=== PATIENT | male | born 1975 | race Hispanic/Latino ===

== ENCOUNTER 2016-05-31 16:14 | Emergency (ER) | payer OTHER ==
[~2016-05-31] VITALS: Ht 175.3 cm; Wt 108.9 kg
--- NOTE | 2016-05-31 16:48 | ED GENERAL ADULT ---
History of Present Illness General Chief Complaint: Chest Pain Stated Complaint: CHEST PAIN, TINGLING TO L ARM Source: patient Exam Limitations: no limitations Vital Signs & Intake/Output Vital Signs & Intake/Output Vital Signs Date Time Temp Pulse Resp B/P Pulse O2 O2 Flow FiO2 Ox Delivery Rate 05/31 1914 97.8 94 20 128/72 98 Room Air 05/31 1738 97.5 75 20 135/76 98 Room Air 05/31 1633 80 15 143/88 97 Room Air Room Air Allergies Coded Allergies: NO KNOWN ALLERGIES (05/31/16) Reconcile Medications Ibuprofen 800 MG TABLET 1 TAB PO PRN PAIN (Reported) Triage Note: PT TO ED FOR INTERMITTENT SHARP CHEST PAIN THAT OCCURS EVERY DAY FOR THE LAST MONTH, BUT TODAY, PT REPORTS DIFFICULTY SEEING OUT OF LEFT EYE. PT ALSO REPORTS LEFT ARM PAIN WITH L HAND NUMBNESS/TINGLING THAT IS MOSTLY CONSTANT. PT'S CP ONLY LASTS ABOUT 5-10 SECS. PT NSR 80'S. NO DIAPHORESIS NOTED. NO ACUTE DISTRESS NOTED. Triage Nurses Notes Reviewed? yes HPI: Patient is a 41-year-old male presents complaining of episode of chest pain, change in vision in his left eye and paresthesias of his left hand. Patient reports that he was driving approximately 2 PM when he had 5-10 seconds of sharp left-sided chest pain. Since then he has been having paresthesias of his left hand and a feeling of cloudy vision and a poking sensation to his left eye. No exacerbating or alleviating factors. Patient reports that he has gotten the episodes of chest pain one to 2 times daily for approximately one month. These episodes also last approximately 5-10 seconds and resolve on their own. Pain is currently 0 out of 10. Patient denies headache, numbness (EDGARDO GRAY) Past History Travel History Traveled to [place] past 21 day No Medical History Any Pertinent Medical History? 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 No (EDGARDO GRAY) Review of Systems Review of Systems Constitutional: Denies: chills, fever. EENTM: Reports: visual changes (LEFT EYE). Respiratory: Reports: short of breath (with the chest pain episode). Denies: cough. Cardiovascular: Reports: see HPI. GI: Reports: no symptoms. Musculoskeletal: Denies: back pain, neck pain. Skin: Reports: no symptoms. Neurological/Psychological: Reports: see HPI. Hematologic/Endocrine: Reports: no symptoms. Immunologic/Allergic: Reports: no symptoms. (EDGARDO GRAY) Physical Exam Physical Exam General Appearance: well developed/nourished, alert, awake Head: atraumatic, normal appearance Eyes: Bilateral: normal appearance, PERRL, EOMI, other (grossly normal fundoscope exam ). Ears, Nose, Throat: normal pharynx, normal ENT inspection, hearing grossly normal Neck: normal inspection, supple, full range of motion, no midline tenderness Respiratory: normal breath sounds, chest non-tender, no respiratory distress, lungs clear Cardiovascular: regular rate/rhythm Peripheral Pulses: 2+ radial (R), 2+ radial (L) Gastrointestinal: soft, non-tender, no palpable masses Back: normal inspection, normal range of motion Extremities: normal inspection, normal capillary refill, normal range of motion, no edema Neurologic/Psych: no motor/sensory deficits, awake, alert, oriented x 3, normal gait, normal mood/affect Skin: intact, normal color, warm/dry Lymphatic: no anterior cervical jocelin Core Measures ACS in differential dx? Yes ASA ordered for poss ACS? No-ACS ruled out CVA/TIA Diagnosis: No Severe Sepsis Present: No Septic Shock Present: No (EDGARDO GRAY) Progress Differential Diagnoses I considered the following diagnoses in my evaluation of the patient: Plan of Care: Orders Procedure Date/time Status Telemetry/Cover Stripper 05/31 1644 Active TROPONIN LEVEL 05/31 1644 Complete COMPREHENSIVE METABOLIC PANEL 05/31 1644 Complete CBC WITHOUT DIFFERENTIAL 05/31 1644 Complete EKG 05/31 1616 Active Laboratory Tests 05/31/16 1738: Anion Gap 14, Estimated GFR > 60, BUN/Creatinine Ratio 17.1, Glucose 91, Calcium 9.5, Total Bilirubin 0.5, AST 23, ALT 38, Alkaline Phosphatase 66, Troponin I < 0.01, Total Protein 7.8, Albumin 4.7, Globulin 3.1, Albumin/Globulin Ratio 1.5, CBC w Diff NO MAN DIFF REQ, RBC 4.28 L, MCV 85.2, MCH 29.8, RDW 13.4, MPV 10.4, Gran % 48.2, Lymphocytes % 41.0, Monocytes % 7.1, Eosinophils % 3.1, Basophils % 0.6, Absolute Granulocytes 3.0, Absolute Lymphocytes 2.6, Absolute Monocytes 0.4 , Absolute Eosinophils 0.2, Absolute Basophils 0, PUBS MCHC 35.0 1740: No chest pain currently. Visual changes mildly improving, continues with left hand paresthesias Discussed with Dr. More: obtain ct of chest and carotids to rule out dissection. 1944: Results of CT scans discussed with patient and his family including incidental findings. Patient remains chest pain free. Patient appears stable for discharge with close outpatient follow-up. (LEONEL RUTH,EDGARDO) Diagnostic Imaging: Viewed by Me: Radiology Read, CT Scan. Discussed w/RAD: Radiology Read, CT Scan. Radiology Impression: PATIENT: ANGELICA FRASER PRESENT AGE: 41 PATIENT ACCOUNT NO: [id number] : 74 LOCATION: [facility] ORDERING PHYSICIAN: EDGARDO RUTH SERVICE DATE: 05/31/16 EXAM TYPE: CAT - CT HEAD WO IV CONTRAST EXAMINATION: CT HEAD WITHOUT CONTRAST CLINICAL INFORMATION: Left hand paresthesias and change in vision. COMPARISON: None. TECHNIQUE: Contiguous axial imaging was performed from the skull base to vertex without intravenous administration of contrast. DLP: 601 mGy-cm. FINDINGS: There is no evidence of acute intracranial hemorrhage or territorial infarction. No abnormal mass effect or midline shift is seen. Robb to white matter differentiation is well preserved. No extra-axial fluid collections are identified. The ventricles are normal in size. There is no abnormal attenuation within the brain parenchyma. The osseous structures and soft tissues are normal. The mastoid air cells and visualized portions of the paranasal sinuses are well aerated. IMPRESSION: No acute intracranial pathology. DICTATED BY: ROCHELLE JOY MD DATE/TIME DICTATED:05/31/161716 CONVEYOR BELT REPAIRER:OBED DATE/TIME TRANSCRIBED:05/31/161716 CONFIDENTIAL, DO NOT COPY WITHOUT APPROPRIATE AUTHORIZATION. <Electronically signed in Other Vendor System> SIGNED BY: ROCHELLE JOY MD 05/31/161721, PATIENT: ANGELICA FRASER PRESENT AGE: 41 PATIENT ACCOUNT NO: [id number] : 74 LOCATION: [facility] ORDERING PHYSICIAN: EDGARDO RUTH SERVICE DATE: 05/31/16 EXAM TYPE: CAT - CTA CHEST-AORTIC DISSECTION EXAMINATION: CTA CHEST-AORTIC DISSECTION CLINICAL INFORMATION: Chest pain for one month. Smoking history. Blurred vision in left eye. Tingling in the left hand. COMPARISON: Chest x-ray done earlier this afternoon. TECHNIQUE: Since CTA of the neck was also obtained at the same time, 75 mL of Optiray 350 were injected as a split bolus in origin evaluate the chest and neck. FINDINGS: Distribution Center Associate: Normal. The thoracic and proximal abdominal aorta are normal in caliber. There is no sign of dissection or thrombus formation. Branch vessels off the aortic arch assume the conventional appearance. There is some calcification of the coronary arteries. Although the timing bolus was for the levo phase, the pulmonary arteries are grossly normal. No significant adenopathy is seen in the mediastinum, hilum, or either axilla. There is only mild dependent atelectasis of the lower lobes. Lungs are clear of consolidation, nodules, and masses. The major airways are well patent. Visualized portions of the bile ducts, gallbladder, pancreas, spleen, both adrenal glands, and both kidneys are normal. There is fatty filtration of an otherwise normal-appearing liver. No osseous abnormalities are detected. IMPRESSION: No indication of aortic dissection. Fatty liver. DICTATED BY: DAT GARCIA MD DATE/TIME DICTATED:05/31/161913 CONVEYOR BELT REPAIRER: OBED DATE/TIME TRANSCRIBED:05/31/161913 CONFIDENTIAL, DO NOT COPY WITHOUT APPROPRIATE AUTHORIZATION. <Electronically signed in Other Vendor System> SIGNED BY: DAT GARCIA MD 05/31/161928, PATIENT: ANGELICA FRASER PRESENT AGE: 41 PATIENT ACCOUNT NO: [id number] : 74 LOCATION: [facility] ORDERING PHYSICIAN: EDGARDO RUTH SERVICE DATE: 05/31/16 EXAM TYPE: CAT - CT NECK ANGIOGRAM EXAMINATION: CT ANGIOGRAM NECK CLINICAL INFORMATION: Chest pain, blurred vision left eye. Tingling left hand. Assess for dissection. COMPARISON: None. TECHNIQUE: Test bolus sequences followed by administration of 75 mL of Optiray 350 intravenous contrast. Helical imaging was performed in the axial plane of the neck. The data was processed at the orthopaedic technologist workstation for generation of MIP sequences. The degree of stenosis is based off NASCET criteria. Three-dimensional volume rendered reformatted images were also generated at an offline 3-D workstation. DLP: 1060.99 mGy-cm. FINDINGS: The aortic arch has a classic configuration. The great vessels of the neck have widely patent origins and are non-stenotic. Both common carotid arteries have normal caliber and widely patent. The carotid bifurcations appear normal bilaterally. The cervical internal carotid arteries are patent with normal caliber. The vertebral arteries are co-dominant and both vertebral origins are widely patent. The intracranial internal carotid arteries have normal caliber bilaterally. The internal carotid artery bifurcations appear normal without evidence of focal stenosis or aneurysm. The middle and anterior cerebral arteries are normal in caliber bilaterally. The anterior communicating artery is normal. The intradural vertebral arteries are codominant. The basilar artery has normal caliber. The left posterior cerebral artery arises primarily off the anterior circulation which is a normal variant. Nonvascular: The lung apices are well-aerated. The thyroid gland is normal in size. There is no cervical lymphadenopathy; there are small multilevel bilateral lymph nodes in the neck. The right styloid process is intermittently calcified extending to the hyoid bone, which may contribute to [place] syndrome. There is mild prominence of the palatine tonsils which is nonspecific. There is periodontal disease around the roots of the left mandibular first and second molar teeth. The right mandibular third molar tooth is inverted and unerupted. The right maxillary third molar tooth is also unerupted. There is mild mucoperiosteal thickening in the right maxillary sinus. There is mild multilevel degenerative change in the mid and lower cervical spine. IMPRESSION: 1. No focal stenosis, aneurysm or dissection is demonstrated in the anterior and posterior circulations in the neck, or intracranially. 2. The right styloid process is intermittently calcified extending to the hyoid bone, which may contribute to Sellers syndrome. Sellers syndrome may present with severe pain in the neck which can occur unilaterally or bilaterally. DICTATED BY: WILLIAN GRACE MD DATE/TIME DICTATED:03/07 CONVEYOR BELT REPAIRER:OBED DATE/TIME TRANSCRIBED:05/31/161920 CONFIDENTIAL, DO NOT COPY WITHOUT APPROPRIATE AUTHORIZATION. <Electronically signed in Other Vendor System> SIGNED BY: WILLIAN GRACE MD 05/31/161941 CXR Impression: PATIENT: ANGELICA FRASER PRESENT AGE: 41 PATIENT ACCOUNT NO: [id number] : 74 LOCATION: [facility] ORDERING PHYSICIAN: EDGARDO RUTH SERVICE DATE: 05/31/16 EXAM TYPE: RAD - XRY-CHEST XRAY, PA AND LATERAL EXAMINATION: XR CHEST CLINICAL INFORMATION: Chest pain. COMPARISON: Chest x-ray 01/22/2013. TECHNIQUE: AP and lateral views of the chest were obtained. FINDINGS: The lung denney are well expanded and appear clear bilaterally. The cardiac silhouette is mildly prominent, but similar compared to the prior study.. There are no pleural effusions or pneumothorax. The central pulmonary vasculature is normal. The hilar regions appear normal. There are mild degenerative changes in the thoracic spine. IMPRESSION: 1. There are no acute cardiopulmonary findings. 2. There is mild prominence of the cardiac silhouette, unchanged. DICTATED BY: WILLIAN GRACE MD DATE/TIME DICTATED:05/31/161744 CONVEYOR BELT REPAIRER:OBED DATE/TIME TRANSCRIBED:05/31/161744 CONFIDENTIAL, DO NOT COPY WITHOUT APPROPRIATE AUTHORIZATION. <Electronically signed in Other Vendor System> SIGNED BY: WILLIAN GRACE MD 05/31/161750 Initial ED EKG: normal axis, normal intervals, normal p-waves, normal QRS complex, normal sinus rhythm, no ST T wave changes (LEONEL RUTH,EDGARDO) Departure Departure Time of Disposition: 1948 Disposition: HOME OR SELF CARE Condition: Stable Clinical Impression Primary Impression: Chest pain Qualifiers: Chest pain type: unspecified Qualified Code: R07.9 - Chest pain, unspecified Secondary Impressions: Left hand paresthesia Referrals: KALYAN ROWE MD (PCP/Family) Additional Instructions: Follow-up with your primary doctor within 1 week for further evaluation. Call in the morning for appointment. Return to the emergency department if chest pain becomes continuous, the nature of the chest pain changes, difficulty breathing, or worsening of symptoms. Departure Forms: Customer Survey General Discharge Information (EDGARDO GRAY) PA/ORTHOPEDIC CODER Co-Sign Statement Statement: ED Attending supervision documentation- [X] I saw and evaluated the patient. I have also reviewed all the pertinent lab results and diagnostic results. I agree with the findings and the plan of care as documented in the PA's/ORTHOPEDIC CODER's documentation. [X] I have reviewed the ED Record and agree with the PA's/ORTHOPEDIC CODER's documentation. [] Additions or exceptions (if any) to the PAs/ORTHOPEDIC CODER's note and plan are summarized below: [] (MARYAM GUPTA,RICHI) Critical Care Note Critical Care Note Critical Care Time: non-applicable (EDGARDO GRAY)
[2016-05-31] MEDS ORDERED: IBUPROFEN800 M1 PO (16:57)
--- NOTE | 2016-05-31 17:22 | CT SCAN REPORT ---
EXAMINATION: CT HEAD WITHOUT CONTRAST CLINICAL INFORMATION: Left hand paresthesias and change in vision. COMPARISON: None. TECHNIQUE: Contiguous axial imaging was performed from the skull base to vertex without intravenous administration of contrast. DLP: 601 mGy-cm. FINDINGS: There is no evidence of acute intracranial hemorrhage or territorial infarction. No abnormal mass effect or midline shift is seen. Robb to white matter differentiation is well preserved. No extra-axial fluid collections are identified. The ventricles are normal in size. There is no abnormal attenuation within the brain parenchyma. The osseous structures and soft tissues are normal. The mastoid air cells and visualized portions of the paranasal sinuses are well aerated. IMPRESSION: No acute intracranial pathology.
--- NOTE | 2016-05-31 17:51 | RADIOLOGY REPORT ---
EXAMINATION: XR CHEST CLINICAL INFORMATION: Chest pain. COMPARISON: Chest x-ray 01/22/2013. TECHNIQUE: AP and lateral views of the chest were obtained. FINDINGS: The lung denney are well expanded and appear clear bilaterally. The cardiac silhouette is mildly prominent, but similar compared to the prior study.. There are no pleural effusions or pneumothorax. The central pulmonary vasculature is normal. The hilar regions appear normal. There are mild degenerative changes in the thoracic spine. IMPRESSION: 1. There are no acute cardiopulmonary findings. 2. There is mild prominence of the cardiac silhouette, unchanged.
[2016-05-31 18:16] LABS: ABSOLUTE BASOPHIL COUNT 0 /CUMM (0.0-0.2); ABSOLUTE EOSINOPHIL COUNT 0.2 /CUMM (0.0-0.7); ABSOLUTE LYMPH COUNT 2.6 /CUMM (1.2-3.4); ABSOLUTE MONOCYTE COUNT 0.4 /CUMM (0.10-0.60); BASOPHIL % 0.6 % (0.0-2.0); EOSINOPHIL % 3.1 % (0-5); GRANULOCYTE % 48.2 % (42.2-75.2); HEMATOCRIT 36.4 % (42-52); MEAN CORPUSCULAR HGB 29.8 PG (27.0-31.0); MEAN CORPUSCULAR VOLUME 85.2 FL (80.0-94.0); MEAN PLATELET VOLUME 10.4 FL (7.4-10.4); PLATELET COUNT 185 /CUMM (130-400); RBC DISTRIBUTION WIDTH 13.4 % (11.5-14.5); RED BLOOD CELL CT 4.28 /CUMM (4.70-6.10); WHITE BLOOD CELL COUNT 6.3 /CUMM (4.8-10.8)
[2016-05-31 19:14] VITALS: BP 128/72
--- NOTE | 2016-05-31 19:29 | CT SCAN REPORT ---
EXAMINATION: CTA CHEST-AORTIC DISSECTION CLINICAL INFORMATION: Chest pain for one month. Smoking history. Blurred vision in left eye. Tingling in the left hand. COMPARISON: Chest x-ray done earlier this afternoon. TECHNIQUE: Since CTA of the neck was also obtained at the same time, 75 mL of Optiray 350 were injected as a split bolus in origin evaluate the chest and neck. FINDINGS: Metal Bonder: Normal. The thoracic and proximal abdominal aorta are normal in caliber. There is no sign of dissection or thrombus formation. Branch vessels off the aortic arch assume the conventional appearance. There is some calcification of the coronary arteries. Although the timing bolus was for the levo phase, the pulmonary arteries are grossly normal. No significant adenopathy is seen in the mediastinum, hilum, or either axilla. There is only mild dependent atelectasis of the lower lobes. Lungs are clear of consolidation, nodules, and masses. The major airways are well patent. Visualized portions of the bile ducts, gallbladder, pancreas, spleen, both adrenal glands, and both kidneys are normal. There is fatty filtration of an otherwise normal-appearing liver. No osseous abnormalities are detected. IMPRESSION: No indication of aortic dissection. Fatty liver.
--- NOTE | 2016-05-31 19:42 | CT SCAN REPORT ---
EXAMINATION: CT ANGIOGRAM NECK CLINICAL INFORMATION: Chest pain, blurred vision left eye. Tingling left hand. Assess for dissection. COMPARISON: None. TECHNIQUE: Test bolus sequences followed by administration of 75 mL of Optiray 350 intravenous contrast. Helical imaging was performed in the axial plane of the neck. The data was processed at the clinical technologist workstation for generation of MIP sequences. The degree of stenosis is based off NASCET criteria. Three-dimensional volume rendered reformatted images were also generated at an offline 3-D workstation. DLP: 1060.99 mGy-cm. FINDINGS: The aortic arch has a classic configuration. The great vessels of the neck have widely patent origins and are non-stenotic. Both common carotid arteries have normal caliber and widely patent. The carotid bifurcations appear normal bilaterally. The cervical internal carotid arteries are patent with normal caliber. The vertebral arteries are co-dominant and both vertebral origins are widely patent. The intracranial internal carotid arteries have normal caliber bilaterally. The internal carotid artery bifurcations appear normal without evidence of focal stenosis or aneurysm. The middle and anterior cerebral arteries are normal in caliber bilaterally. The anterior communicating artery is normal. The intradural vertebral arteries are codominant. The basilar artery has normal caliber. The left posterior cerebral artery arises primarily off the anterior circulation which is a normal variant. Nonvascular: The lung apices are well-aerated. The thyroid gland is normal in size. There is no cervical lymphadenopathy; there are small multilevel bilateral lymph nodes in the neck. The right styloid process is intermittently calcified extending to the hyoid bone, which may contribute to [place] syndrome. There is mild prominence of the palatine tonsils which is nonspecific. There is periodontal disease around the roots of the left mandibular first and second molar teeth. The right mandibular third molar tooth is inverted and unerupted. The right maxillary third molar tooth is also unerupted. There is mild mucoperiosteal thickening in the right maxillary sinus. There is mild multilevel degenerative change in the mid and lower cervical spine. IMPRESSION: 1. No focal stenosis, aneurysm or dissection is demonstrated in the anterior and posterior circulations in the neck, or intracranially. 2. The right styloid process is intermittently calcified extending to the hyoid bone, which may contribute to [place] syndrome. [place] syndrome may present with severe pain in the neck which can occur unilaterally or bilaterally.
== END 2016-05-31 20:00 ==
LOC: ERH 16:14
PROVIDERS: Physician Assistant
DX: R07.9 Chest pain, unspecified (principal); R20.2 Paresthesia of skin
CPT/HCPCS: 93005; 93010; 96374; J2405